=== PATIENT | female | born 1935 | race Asian ===

== ENCOUNTER 2021-02-03 18:03 | Inpatient (IN) | payer OTHER, MEDICAID ==
[~2021-02-03] VITALS: Ht 160 cm; Wt 48.1 kg
[2021-02-03 18:14] VITALS: BP 137/86
[2021-02-03] MEDS ORDERED: MORPHINE SULFATE 2 MG/ML SYR IVP ONE (18:15)
[2021-02-03 19:18] LABS: BASOPHILS % (AUTO) 0.1 % (0.0-2.0); EOSINOPHILS % (AUTO) 0.1 % (0.0-4.0); HEMATOCRIT 30.6 % (36-48); HEMOGLOBIN 10.3 g/dL (12.0-16.0); LYMPHOCYTES # (AUTO) 0.8 K/uL (2.5-16.5); MEAN CORPUSCULAR HEMOGLOBIN 34 pg (27-31); MEAN CORPUSCULAR HGB CONC 34 g/dL (33-37); MEAN CORPUSCULAR VOLUME 99.5 fL (80-94); MONOCYTES # (AUTO) 0.5 K/uL (0.8-1.0); MONOCYTES % (AUTO) 3.9 % (1.7-9.3); NEUTROPHILS # (AUTO) 11.5 K/uL (1.8-7.7); PLATELET COUNT (AUTO) 115 K/uL (140-450); RED BLOOD CELL COUNT(AUTO) 3.08 MIL/uL (4.20-5.40); RED CELL DISTRIBUTION WIDTH 13.4 % (11.6-13.7); WHITE BLOOD COUNT (AUTO) 12.8 K/uL (4.8-10.8)
[2021-02-03 19:34] LABS: ALBUMIN 3.6 g/dL (3.4-5.0); ASPARTATE AMINOTRANSFERASE 30 U/L (15-37); CARBON DIOXIDE 20.7 mmol/L (21-32); CHLORIDE 89 mmol/L (98-107); CREATININE 3.2 mg/dL (0.6-1.3); GLUCOSE 159 mg/dL (74-106); POTASSIUM 3.7 mmol/L (3.5-5.1); SODIUM SERUM 125 mmol/L (136-145); TOTAL BILIRUBIN 0.8 mg/dL (0.0-1.0); UREA NITROGEN, BLOOD 41 mg/dL (7-18)
[2021-02-03 19:37] LABS: NEUTROPHILS % (AUTO) 89.9 % (42.2-75.2)
[2021-02-03] MEDS ORDERED: MORPHINE SULFATE 2 MG/ML SYR IVP PRN (21:10)
[2021-02-03] MEDS ORDERED: NACL 0.9% 1,000 ML IV SCH (21:10)
[2021-02-03] MEDS ORDERED: HYDROcodone/APAP 5/325 MG 1 TAB TAB PO PRN (21:10)
[2021-02-03 22:40] VITALS: BP 136/74
[2021-02-03] MEDS ORDERED: CLOP75TA55 PO (23:48)
[2021-02-03] MEDS ORDERED: LOSA100T1 PO (23:56)
[2021-02-03] MEDS ORDERED: SIMV20TA1 PO (23:56)
[2021-02-03] MEDS ORDERED: [UNRECOGNIZED DRUG - CODE] OP (23:56)
[2021-02-03] MEDS ORDERED: SYN.05 PO (23:56)
[2021-02-03] MEDS ORDERED: [UNRECOGNIZED DRUG - CODE] OP (23:56)
[2021-02-03] MEDS ORDERED: GABA-640 PO (23:56)
[2021-02-04 04:00] VITALS: BP 116/70
[2021-02-04 08:00] VITALS: BP 128/54
[2021-02-04] MEDS ORDERED: ONDANSETRON 4 MG/2 ML VIAL IM/IVP PRN (09:05)
[2021-02-04] MEDS ORDERED: ACETAMINOPHEN 325 MG TAB PO PRN (09:05)
[2021-02-04] MEDS ORDERED: HYDROcodone/APAP 5/325 MG 1 TAB TAB PO PRN (09:05)
[2021-02-04] MEDS ORDERED: DOCUSATE SODIUM 100 MG GELCAP PO PRN (09:05)
[2021-02-04] MEDS ORDERED: LORazepam 2 MG/ML VIAL IM/IVP PRN (09:05)
[2021-02-04] MEDS ORDERED: MECLIZINE 25 MG TAB PO PRN (09:05)
[2021-02-04] MEDS ORDERED: MAG SULF 2000 MG/WATER PREMIX 50 ML IV PRN (09:05)
[2021-02-04] MEDS ORDERED: MORPHINE SULFATE 2 MG/ML SYR IVP PRN (09:05)
[2021-02-04] MEDS ORDERED: POTASSIUM CHLORIDE 10 MEQ TABER PO PRN (09:05)
[2021-02-04] MEDS ORDERED: CLOPIDOGREL 75 MG TAB PO SCH (09:39)
[2021-02-04] MEDS ORDERED: LOSARTAN 25 MG TAB PO SCH (09:41)
[2021-02-04] MEDS ORDERED: LEVOTHYROXINE 0.025 MG TAB PO SCH (09:52)
[2021-02-04 10:11] LABS: BASOPHILS % (AUTO) 0.1 % (0.0-2.0); EOSINOPHILS # (AUTO) 0.1 K/uL (0-0.4); EOSINOPHILS % (AUTO) 0.9 % (0.0-4.0); HEMATOCRIT 26.2 % (36-48); LYMPHOCYTES # (AUTO) 0.5 K/uL (2.5-16.5); LYMPHOCYTES % (AUTO) 5.9 % (20.5-51.1); MEAN CORPUSCULAR HEMOGLOBIN 35 pg (27-31); MEAN CORPUSCULAR HGB CONC 34 g/dL (33-37); MONOCYTES # (AUTO) 0.3 K/uL (0.8-1.0); MONOCYTES % (AUTO) 3.7 % (1.7-9.3); NEUTROPHILS # (AUTO) 8.1 K/uL (1.8-7.7); NEUTROPHILS % (AUTO) 89.4 % (42.2-75.2); PLATELET COUNT (AUTO) 107 K/uL (140-450); RED CELL DISTRIBUTION WIDTH 13.3 % (11.6-13.7); WHITE BLOOD COUNT (AUTO) 9.1 K/uL (4.8-10.8)
[2021-02-04] MEDS: NACL 0.9% 1,000 ML IV SCH (10:29)
[2021-02-04 10:42] LABS: PROTHROMBIN TIME 9.9 secs (10.8-13.4)
[2021-02-04 10:44] LABS: CHOL/HDL RATIO 2.3 (1-4.5); THYROID STIMULATING HORMONE 1.78 uIU/mL (0.34-3.74)
[2021-02-04 11:13] LABS: ALBUMIN 2.8 g/dL (3.4-5.0); ANION GAP 16.6 (8-16); ASPARTATE AMINOTRANSFERASE 21 U/L (15-37); CARBON DIOXIDE 21.1 mmol/L (21-32); CHLORIDE 102 mmol/L (98-107); CREATININE 2.4 mg/dL (0.6-1.3); GLUCOSE 157 mg/dL (74-106); POTASSIUM 3.7 mmol/L (3.5-5.1); SODIUM SERUM 136 mmol/L (136-145); TOTAL BILIRUBIN 0.7 mg/dL (0.0-1.0); UREA NITROGEN, BLOOD 36 mg/dL (7-18)
[2021-02-04 11:24] LABS: MAGNESIUM 2.3 mg/dL (1.8-2.4)
[2021-02-04 11:25] LABS: PHOSPHORUS 4.2 mg/dL (2.5-4.9)
[2021-02-04 12:00] VITALS: BP 131/62
[2021-02-04] MEDS: GABAPENTIN 100 MG CAP PO SCH ×2 (12:38→17:10)
[2021-02-04] MEDS ORDERED: GABAPENTIN 100 MG CAP PO SCH (13:00)
[2021-02-04 16:00] VITALS: BP 120/74
[2021-02-04 16:59] LABS: APPEARANCE,URINE CLEAR (CLEAR); BILIRUBIN,URINE NEGATIVE (NEGATIVE); BLOOD, URINE 2+ (NEGATIVE); COLOR,URINE YELLOW (YELLOW); LEUKOCYTE ESTERASE ,URINE NEGATIVE (NEGATIVE); NITRITE, URINE NEGATIVE (NEGATIVE); UGLUCOSE NEGATIVE (NEGATIVE)
[2021-02-04] MEDS ORDERED: TAFLUPROST OP SCH (17:00)
[2021-02-04] MEDS: LATANOPROST 0.005% OP 2.5 ML BTL OP SCH (17:11)
[2021-02-04 20:00] VITALS: BP_SYST 124; BP_SYST 134; BP_DIAS 65
[2021-02-04] MEDS ORDERED: ZOLPIDEM 5 MG TAB PO PRN (21:00)
[2021-02-04] MEDS: TIMOLOL OP 0.5% 5 ML BTL OP SCH (21:00)
[2021-02-04] MEDS: DORZOLAMIDE 2% OP 10 ML BTL OP SCH (21:00)
[2021-02-04] MEDS ORDERED: DORZOLAMIDE OP SCH (21:00)
[2021-02-04] MEDS ORDERED: TIMOLOL OP SCH (21:00)
[2021-02-04] MEDS: SIMVASTATIN 20 MG TAB PO SCH (21:05)
[2021-02-05] VITALS: BP 149/76
[2021-02-05] MEDS: NACL 0.9% 1,000 ML IV SCH ×2 (01:45→17:21)
[2021-02-05] MEDS: DORZOLAMIDE 2% OP 10 ML BTL OP SCH (01:57)
[2021-02-05 04:00] VITALS: BP 131/76
[2021-02-05 06:09] LABS: BASOPHILS % (AUTO) 0.3 % (0.0-2.0); EOSINOPHILS # (AUTO) 0.1 K/uL (0-0.4); EOSINOPHILS % (AUTO) 1.7 % (0.0-4.0); HEMATOCRIT 23.4 % (36-48); HEMOGLOBIN 8.1 g/dL (12.0-16.0); LYMPHOCYTES # (AUTO) 0.7 K/uL (2.5-16.5); LYMPHOCYTES % (AUTO) 9.7 % (20.5-51.1); MEAN CORPUSCULAR HEMOGLOBIN 34 pg (27-31); MEAN CORPUSCULAR HGB CONC 35 g/dL (33-37); MEAN CORPUSCULAR VOLUME 98.8 fL (80-94); MONOCYTES # (AUTO) 0.5 K/uL (0.8-1.0); MONOCYTES % (AUTO) 6.1 % (1.7-9.3); NEUTROPHILS # (AUTO) 6.2 K/uL (1.8-7.7); NEUTROPHILS % (AUTO) 82.2 % (42.2-75.2); PLATELET COUNT (AUTO) 102 K/uL (140-450); RED BLOOD CELL COUNT(AUTO) 2.37 MIL/uL (4.20-5.40); RED CELL DISTRIBUTION WIDTH 13.4 % (11.6-13.7); WHITE BLOOD COUNT (AUTO) 7.5 K/uL (4.8-10.8)
[2021-02-05 06:11] LABS: ANION GAP 14.8 (8-16); CARBON DIOXIDE 22.4 mmol/L (21-32); CHLORIDE 106 mmol/L (98-107); CREATININE 1.6 mg/dL (0.6-1.3); GLUCOSE 115 mg/dL (74-106); POTASSIUM 3.2 mmol/L (3.5-5.1); SODIUM SERUM 140 mmol/L (136-145); UREA NITROGEN, BLOOD 27 mg/dL (7-18)
[2021-02-05 06:14] LABS: MAGNESIUM 2.1 mg/dL (1.8-2.4); PHOSPHORUS 3.8 mg/dL (2.5-4.9)
[2021-02-05] MEDS: LEVOTHYROXINE 0.025 MG TAB PO SCH (07:41)
[2021-02-05 08:00] VITALS: BP 136/77
[2021-02-05] MEDS: CLOPIDOGREL 75 MG TAB PO SCH (08:24)
[2021-02-05] MEDS: LOSARTAN 25 MG TAB PO SCH (08:24)
[2021-02-05] MEDS: GABAPENTIN 100 MG CAP PO SCH ×3 (08:25→17:20)
[2021-02-05] MEDS: TIMOLOL OP 0.5% 5 ML BTL OP SCH (08:34)
[2021-02-05] MEDS: LACTULOSE 20 GM/30 ML UDC PO SCH (09:36)
[2021-02-05] MEDS: PATIENTS OWN EENT OP SCH ×2 (11:47→20:15)
[2021-02-05 12:00] VITALS: BP 136/77
[2021-02-05 16:00] VITALS: BP 140/71
[2021-02-05] MEDS: LATANOPROST 0.005% OP 2.5 ML BTL OP SCH (17:21)
[2021-02-05 20:00] VITALS: BP 160/85
[2021-02-05 20:00] LABS: URINE SODIUM, RANDOM 30 mmol/l (40-220)
[2021-02-05] MEDS: SIMVASTATIN 20 MG TAB PO SCH (20:13)
[2021-02-05] MEDS ORDERED: SHARK OIL/PHENYLEPHRINE 60 GM TUBE TP PRN (20:15)
[2021-02-05] MEDS: COMMUNICATION ORDER MC SCH (21:00)
[2021-02-06] VITALS: BP 151/79
[2021-02-06 04:00] VITALS: BP 151/79
[2021-02-06] MEDS: LEVOTHYROXINE 0.025 MG TAB PO SCH (06:40)
[2021-02-06 06:57] LABS: BASOPHILS % (AUTO) 0.5 % (0.0-2.0); EOSINOPHILS # (AUTO) 0.1 K/uL (0-0.4); EOSINOPHILS % (AUTO) 1.9 % (0.0-4.0); HEMATOCRIT 25.6 % (36-48); HEMOGLOBIN 8.7 g/dL (12.0-16.0); LYMPHOCYTES # (AUTO) 0.9 K/uL (2.5-16.5); LYMPHOCYTES % (AUTO) 11.8 % (20.5-51.1); MEAN CORPUSCULAR HEMOGLOBIN 35 pg (27-31); MEAN CORPUSCULAR HGB CONC 34 g/dL (33-37); MEAN CORPUSCULAR VOLUME 101.4 fL (80-94); MONOCYTES # (AUTO) 0.6 K/uL (0.8-1.0); MONOCYTES % (AUTO) 7.7 % (1.7-9.3); NEUTROPHILS # (AUTO) 5.6 K/uL (1.8-7.7); NEUTROPHILS % (AUTO) 78.1 % (42.2-75.2); PLATELET COUNT (AUTO) 114 K/uL (140-450); RED BLOOD CELL COUNT(AUTO) 2.53 MIL/uL (4.20-5.40); RED CELL DISTRIBUTION WIDTH 13.7 % (11.6-13.7); WHITE BLOOD COUNT (AUTO) 7.2 K/uL (4.8-10.8)
[2021-02-06 07:01] LABS: ANION GAP 12.5 (8-16); CARBON DIOXIDE 26.6 mmol/L (21-32); CHLORIDE 106 mmol/L (98-107); CREATININE 1.2 mg/dL (0.6-1.3); GLUCOSE 123 mg/dL (74-106); POTASSIUM 4.1 mmol/L (3.5-5.1); SODIUM SERUM 141 mmol/L (136-145); UREA NITROGEN, BLOOD 15 mg/dL (7-18)
[2021-02-06 07:08] LABS: MAGNESIUM 1.8 mg/dL (1.8-2.4); PHOSPHORUS 3.1 mg/dL (2.5-4.9)
[2021-02-06 08:00] VITALS: BP 152/85
[2021-02-06] MEDS: CLOPIDOGREL 75 MG TAB PO SCH (08:25)
[2021-02-06] MEDS: LOSARTAN 25 MG TAB PO SCH (08:26)
[2021-02-06] MEDS: GABAPENTIN 100 MG CAP PO SCH ×2 (08:27→13:01)
[2021-02-06] MEDS: LACTULOSE 20 GM/30 ML UDC PO SCH (08:27)
[2021-02-06] MEDS: COMMUNICATION ORDER MC SCH (08:28)
[2021-02-06] MEDS: PATIENTS OWN EENT OP SCH (08:28)
[2021-02-06] MEDS ORDERED: bisacodyL 5 MG TABEC PO SCH (10:30)
[2021-02-06 11:27] VITALS: BP 152/70
[2021-02-06] MEDS: NACL 0.9% 1,000 ML IV SCH (11:31)
[2021-02-06 12:00] VITALS: BP 166/83
[2021-02-06 13:09] VITALS: BP_SYST 152
== END 2021-02-06 15:20 | DRG 73 ==
LOC: MED 18:03 → MTU 21:15
DX: G90.9 Disorder of the autonomic nervous system, unspecified (principal); N17.0 Acute kidney failure with tubular necrosis; E44.0 Moderate protein-calorie malnutrition; Z68.1 Body mass index [BMI] 19.9 or less, adult; E87.1 Hypo-osmolality and hyponatremia; N13.30 Unspecified hydronephrosis; W18.30XA Fall on same level, unspecified, initial encounter; I25.10 Atherosclerotic heart disease of native coronary artery without angina pectoris; E03.9 Hypothyroidism, unspecified; E78.5 Hyperlipidemia, unspecified; D63.8 Anemia in other chronic diseases classified elsewhere; K44.9 Diaphragmatic hernia without obstruction or gangrene; E86.0 Dehydration; E11.40 Type 2 diabetes mellitus with diabetic neuropathy, unspecified; R33.9 Retention of urine, unspecified; I12.9 Hypertensive chronic kidney disease with stage 1 through stage 4 chronic kidney disease, or unspecified chronic kidney disease; N18.31 Chronic kidney disease, stage 3a; M25.551 Pain in right hip; E11.22 Type 2 diabetes mellitus with diabetic chronic kidney disease; K59.00 Constipation, unspecified; Z20.822 Contact with and (suspected) exposure to COVID-19; E87.6 Hypokalemia; K76.9 Liver disease, unspecified; D32.9 Benign neoplasm of meninges, unspecified; Z88.1 Allergy status to other antibiotic agents; Z88.0 Allergy status to penicillin; Y93.89 Activity, other specified; Y92.89 Other specified places as the place of occurrence of the external cause; Y99.8 Other external cause status
CPT/HCPCS: 36415; 70450; 71045; 73502; 76770; 80048; 80053; 81003; 82570; 83036; 83690; 83735; 83880; 84100; 84134; 84300; 84443; 84484; 85025; 85610; 85730; 87040; 87081; 87086; 93005; 93880; 96374; 97110; 97112; 97116; 97163-GP; 97530; 99285; J2270